=== PATIENT | female | born 1980 | race Two or more races ===

== ENCOUNTER 2019-10-13 09:59 | Inpatient (IN) | payer OTHER ==
[~2019-10-13] VITALS: Ht 132.1 cm; Wt 88.5 kg
[2019-10-13] MEDS ORDERED: CEFUROXIME250 MG PO (10:15)
[2019-10-14] MEDS ORDERED: CIPRO500 MG PO (08:18)
[2019-10-14] MEDS ORDERED: OXYC1TAB9 PO (08:18)
[2019-10-14] MEDS ORDERED: FLAGYL500MG PO (08:19)
[2019-10-14] MEDS ORDERED: RECTICARE30 GM TOP (08:19)
== END 2019-10-14 13:39 | disposition home or self-care (01) | DRG 349 ==
LOC: ER 09:59 → SURH 13:11 → SEC-K 13:11 → SURH 17:24
PROVIDERS: ADMIT Surgery; ATTEND Surgery
PROC: 0D9Q00Z Drainage of Anus with Drainage Device, Open Approach (ICD-10-PCS; principal; 2019-10-13 14:00)
DX: K61.0 Anal abscess (principal); K61.1 Rectal abscess; B96.29 Other Escherichia coli [E. coli] as the cause of diseases classified elsewhere; B95.1 Streptococcus, group B, as the cause of diseases classified elsewhere; Z20.828 Contact with and (suspected) exposure to other viral communicable diseases

== ENCOUNTER 2019-10-28 11:21 | Emergency (ER) | payer OTHER ==
[~2019-10-28] VITALS: Ht 162.6 cm; Wt 89.4 kg
[~2019-10-28 11:21] MED LIST: CEFUROXIME250 MG PO; CIPRO500 MG PO; FLAGYL500MG PO; OXYC1TAB9 PO; RECTICARE30 GM TOP
== END 2019-10-28 14:23 | disposition home or self-care (01) ==
LOC: ER 11:21
DX: K61.39 Other ischiorectal abscess (principal); B96.29 Other Escherichia coli [E. coli] as the cause of diseases classified elsewhere; B95.1 Streptococcus, group B, as the cause of diseases classified elsewhere; B96.89 Other specified bacterial agents as the cause of diseases classified elsewhere; Z20.828 Contact with and (suspected) exposure to other viral communicable diseases

== ENCOUNTER 2020-05-08 07:21 | Day surgery (SDC) | payer OTHER | END 2020-05-08 10:50 | disposition home or self-care (01) | LOC: AMB-ENDOS 07:21 | PROVIDERS: ATTEND Surgery | DX: K62.89 Other specified diseases of anus and rectum (principal); Z20.822 Contact with and (suspected) exposure to COVID-19 ==

== ENCOUNTER 2020-06-11 05:45 | Day surgery (SDC) | payer OTHER ==
[2020-06-11] MEDS ORDERED: RECTICARE30 GM TOP (09:08)
[2020-06-11] MEDS ORDERED: PERCOCET 5-3251 EACH PO (09:08)
== END 2020-06-11 13:25 | disposition home or self-care (01) ==
LOC: CIR.AMB 05:45
PROVIDERS: ATTEND Surgery
DX: K60.3 Anal fistula (principal); Z20.822 Contact with and (suspected) exposure to COVID-19